=== PATIENT | male | born 1955 | race Caucasian/White ===

== ENCOUNTER 2023-11-28 14:54 | Emergency (ER) | payer MEDICARE ==
[~2023-11-28] VITALS: Ht 180.3 cm; Wt 122.1 kg
[2023-11-28 15:06] VITALS: BP 142/71; PULSE 79; RESP 18; TEMP 97.9; O2SAT 94
[2023-11-28] MEDS: KETOROLAC 30 MG/ML VIAL IVP ONE (15:45)
[2023-11-28] MEDS: ONDANSETRON 4 MG/2 ML VIAL IVP ONE (15:45)
[2023-11-28 15:55] LABS: APPEARANCE,URINE CLEAR (CLEAR); BILIRUBIN,URINE NEGATIVE (NEGATIVE); BLOOD, URINE NEGATIVE (NEGATIVE); COLOR,URINE YELLOW (YELLOW); LEUKOCYTE ESTERASE ,URINE NEGATIVE (NEGATIVE); NITRITE, URINE NEGATIVE (NEGATIVE); PROTEIN,URINE NEGATIVE (NEGATIVE); UGLUCOSE 3+ (NEGATIVE); UROBILINOGEN,URINE 0.2 EU/dL (0.2 - 1)
[2023-11-28 16:01] LABS: BASOPHILS # (AUTO) 0.1 K/uL (0.00-0.22); EOSINOPHILS # (AUTO) 0.1 K/uL (0-0.4); EOSINOPHILS % (AUTO) 1.1 % (0.0-4.0); HEMOGLOBIN 12.7 g/dL (12.0-18.0); LYMPHOCYTES # (AUTO) 2.5 K/uL (2.0-11.5); LYMPHOCYTES % (AUTO) 27.4 % (20.5-51.1); MEAN CORPUSCULAR HEMOGLOBIN 26 pg (27-31); MEAN CORPUSCULAR HGB CONC 32 g/dL (33-37); MEAN CORPUSCULAR VOLUME 83.5 fL (80-94); MONOCYTES # (AUTO) 0.7 K/uL (0.8-1.0); MONOCYTES % (AUTO) 7.4 % (1.7-9.3); NEUTROPHILS # (AUTO) 5.8 K/uL (1.8-7.7); NEUTROPHILS % (AUTO) 63.1 % (42.2-75.2); PLATELET COUNT (AUTO) 385 K/uL (140-450); RED BLOOD CELL COUNT(AUTO) 4.79 MIL/uL (4.20-6.10); RED CELL DISTRIBUTION WIDTH 17.4 % (11.6-13.7); WHITE BLOOD COUNT (AUTO) 9.2 K/uL (4.8-10.8)
[2023-11-28 16:03] LABS: ANION GAP 16.4 (8-16); CALCIUM 9.3 mg/dL (8.5-10.1); CARBON DIOXIDE 24.7 mmol/L (21-32); CREATININE 1.2 mg/dL (0.6-1.3); POTASSIUM 4.1 mmol/L (3.5-5.1)
[2023-11-28 16:10] LABS: ALANINE AMINOTRANSFERASE 58 U/L (12-78); ALBUMIN 3.4 g/dL (3.4-5.0); ALKALINE PHOSPHATASE 60 U/L (50-136); ASPARTATE AMINOTRANSFERASE 106 U/L (15-37); BILIRUBIN,DIRECT 0.1 mg/dL (0.0-0.3); LIPASE 49 U/L (16-77); TOTAL BILIRUBIN 0.2 mg/dL (0.0-1.0); TOTAL PROTEIN, SERUM 8.3 g/dL (6.4-8.2)
[2023-11-28] MEDS ORDERED: BENZ-315 PO (16:44)
[2023-11-28] MEDS ORDERED: SIMV-373 PO (16:44)
[2023-11-28] MEDS ORDERED: AMLO5TAB PO (16:44)
[2023-11-28] MEDS ORDERED: CEPH-588 PO (16:44)
[2023-11-28] MEDS ORDERED: CHOL1CAP11 PO (16:44)
[2023-11-28] MEDS ORDERED: PANT40EC PO (16:44)
[2023-11-28] MEDS ORDERED: LACT10PA2 PO (16:44)
[2023-11-28] MEDS ORDERED: PRO1 PO (16:44)
[2023-11-28] MEDS ORDERED: TRAZ-343 PO (16:44)
[2023-11-28] MEDS ORDERED: GLIP10TE1 PO (16:44)
[2023-11-28] MEDS ORDERED: SOD1POWD PO (16:44)
[2023-11-28] MEDS ORDERED: ASPI-1822 PO (16:44)
[2023-11-28] MEDS ORDERED: LISI10TA30 PO (16:44)
[2023-11-28] MEDS ORDERED: ALUM355S50 PO (16:44)
[2023-11-28] MEDS ORDERED: METO25TE2 PO (16:44)
[2023-11-28] MEDS ORDERED: [UNRECOGNIZED DRUG - CODE] DT (16:44)
[2023-11-28] MEDS ORDERED: MULT-2253 PO (16:44)
[2023-11-28] MEDS ORDERED: LORA-476 PO (16:44)
[2023-11-28 17:46] VITALS: O2SAT 94
[2023-11-28] MEDS ORDERED: ONDA-188 PO (18:14)
[2023-11-28] MEDS ORDERED: NAPR-337 PO (18:14)
[2023-11-28] MEDS ORDERED: DICY-209 PO (18:14)
[2023-11-28] MEDS: HYDROcodone/APAP 5/325 MG 1 TAB TAB PO ONE (18:26)
[2023-11-28] MEDS: DICYCLOMINE 10 MG CAP PO ONE (18:28)
[2023-11-28 18:38] VITALS: BP 129/61; PULSE 75; RESP 17; TEMP 98; O2SAT 94
== END 2023-11-28 18:35 | disposition home or self-care (01) ==
LOC: MED 14:54
DX: K30 Functional dyspepsia (principal); K76.0 Fatty (change of) liver, not elsewhere classified; R03.0 Elevated blood-pressure reading, without diagnosis of hypertension; K21.9 Gastro-esophageal reflux disease without esophagitis; I10 Essential (primary) hypertension; Z79.899 Other long term (current) drug therapy; Z79.82 Long term (current) use of aspirin
CPT/HCPCS: 36415; 74176; 80048; 80076; 81003; 83690; 84484; 85025; 93005; 96374; 96375; 99285; J1885; J2405